=== PATIENT | male | born 1965 | race Caucasian/White ===

== ENCOUNTER 2017-07-10 14:10 | Observation (INO) | payer BC ==
[~2017-07-10] VITALS: Ht 188 cm; Wt 86.4 kg
[2017-07-10] MEDS ORDERED: TAMIFLU 75MG75 MG PO (14:18)
[2017-07-10 15:57] LABS: BASO % 0.2 % (0.0-2.0); EOS % 0.3 % (0-4.0); GRAN # 9.7 (1.4-6.5); GRAN % 76.8 % (42.2-75.2); HEMATOCRIT 49.7 % (42.0-52.0); HEMOGLOBIN 16.5 g/dl (13.5-18.0); LYMPH # 2.1 (1.2-3.4); LYMPH % 16.2 % (20.0-51.0); MEAN CELL VOLUME 85 fl (80.0-100.0); MEAN CORPUSCULAR HEMOGLOBIN 28 pg (27.0-31.0); MEAN CORPUSCULAR HGB CONC 33 g/dl (33.0-37.0); MEAN PLATELET VOLUME 10.9 fl (7.4-10.4); MONO # 0.8 (0.1-0.6); MONO % 6.3 % (1.7-9.3); PLATELET COUNT 190 K/mm3 (130-400); RED BLOOD COUNT 5.85 M/mm3 (4.20-5.60); REDCELL DISTRIBUTION WIDTH-CV 12.7 % (11.5-14.5)
[2017-07-10 16:08] LABS: ALBUMIN 4.2 gm/dL (3.5-5.0); BILIRUBIN,TOTAL 0.5 mg/dL (0.0-1.0); CALCIUM 8.7 mg/dL (8.4-10.2); CREATININE, serum 1.1 mg/dL (0.66-1.25); POTASSIUM 3.8 mmol/L (3.4-5.0); TOTAL PROTEIN 7.6 gm/dL (6.4-8.2)
[2017-07-10 18:26] VITALS: BP 131/77; PULSE 113; TEMP 99.3
[2017-07-11 00:58] VITALS: BP 106/79; PULSE 87; TEMP 98.6
[2017-07-11 05:57] VITALS: BP 117/72; PULSE 80; TEMP 98.6
[2017-07-11 06:41] LABS: HEMATOCRIT 43.1 % (42.0-52.0); MEAN CELL VOLUME 84 fl (80.0-100.0); MEAN CORPUSCULAR HEMOGLOBIN 28 pg (27.0-31.0); MEAN CORPUSCULAR HGB CONC 34 g/dl (33.0-37.0); MEAN PLATELET VOLUME 11.5 fl (7.4-10.4); PLATELET COUNT 181 K/mm3 (130-400); RED BLOOD COUNT 5.13 M/mm3 (4.20-5.60); REDCELL DISTRIBUTION WIDTH-CV 12.8 % (11.5-14.5)
[2017-07-11 06:45] LABS: HEMOGLOBIN 14.5 g/dl (13.5-18.0)
[2017-07-11 06:48] LABS: ALBUMIN 3.2 gm/dL (3.5-5.0); BILIRUBIN,TOTAL 0.3 mg/dL (0.0-1.0); CALCIUM 8.4 mg/dL (8.4-10.2); CREATININE, serum 0.86 mg/dL (0.66-1.25); POTASSIUM 4.1 mmol/L (3.4-5.0); TOTAL PROTEIN 6.3 gm/dL (6.4-8.2)
[2017-07-11 07:42] LABS: BAND 36 % (0-10); LYMPHOCYTE 9 % (20.0-51.0); NEUTROPHILS 50 % (42.0-75.2); PLATELET ESTIMATE NORMAL (NORMAL)
[2017-07-11 07:47] VITALS: BP 123/76; PULSE 64; TEMP 98.2
[2017-07-11 11:15] VITALS: BP 111/75; PULSE 63; TEMP 98
[2017-07-11] MEDS ORDERED: CEFTIN 250250 MG/TAB PO (13:25)
== END 2017-07-11 15:00 | disposition home or self-care (01) ==
LOC: COL.ER 14:10 → MEDICAL 17:11
PROVIDERS: Emergency Medicine; Internal Medicine
DX: R06.03 Acute respiratory distress (principal); J10.00 Influenza due to other identified influenza virus with unspecified type of pneumonia; I10 Essential (primary) hypertension; E78.5 Hyperlipidemia, unspecified; Z85.820 Personal history of malignant melanoma of skin
CPT/HCPCS: G0378; J0456; J0696; J1650; J1885; J2920; J2930; J7030; J7050

== ENCOUNTER → 2018-10-24 | Outpatient (CLI) | payer BC ==
[~2018-10-24] MED LIST: CEFTIN 250250 MG/TAB PO; TAMIFLU 75MG75 MG PO
== END ==
LOC: COL.RAD 13:53
DX: J90 Pleural effusion, not elsewhere classified (principal); N28.1 Cyst of kidney, acquired; N28.9 Disorder of kidney and ureter, unspecified
CPT/HCPCS: Q9967